=== PATIENT | female | born 1980 | race Caucasian/White ===

== ENCOUNTER 2023-10-19 08:38 | Emergency (ER) | payer BC, SELFPAY ==
[2023-10-19 08:39] VITALS: BP 179/101
--- NOTE | 2023-10-19 10:00 | ED.GENMED ---
History of Present Illness
General
Chief Complaint: Abdominal Pain
Source: patient
Exam Limitations: none
Time Seen by Provider: 10/19/23 08:43
Nursing documentation reviewed up to this point in time: agreed with
Travel History
Have you had any contact with someone who has COVID-19?: No
Do you have any symptoms of coronavirus? Fever > 100 degrees, chills, cough, shortness of breath, sore throat, loss of taste or smell, muscle aches, or headache?: No
History of Present Illness
History of Present Illness:
43-year-old female with a past medical history of hypertension who presents to the emergency department for evaluation of abdominal pain. Patient reports symptoms have been ongoing for the past 5 months since May�she says she has had
intermittent pains in the left upper abdomen that radiates to the back�no clear triggering factors although initially she thought it might be related to unhealthy food. She says that she will typically get symptoms a few times a week. She says
that she tried Pepto-Bismol heto-doz-bowthjw and tried a 2-week course of Prilosec but symptoms did not resolve and so she ultimately saw her primary doctor recently for this. She says she was told that her symptoms could be referred pain from her
gallbladder and scheduled for an upper abdominal ultrasound which is in October. Patient says she has been meticulous about avoiding fatty foods in her diet but she is still having symptoms and yesterday had a episode lasted longer than usual�she says
she had pain essentially from 4 PM until she went to bed. She says she also had some associated paresthesias on the left side of her back/flank as well as occasionally in her foot and arm. She says she has associated nausea but no vomiting. Last
night she had some chills but generally speaking has not had fever or chills associate with the symptoms. She denies any shortness of breath or chest pain, coughing. She denies any associated constipation; yesterday in fact had some loose stools
but generally speaking has not had loose stools associated with the symptoms. She denies any dysuria, hematuria, change in urinary frequency. She just recently started her menstrual period and has some typical vaginal spotting. She denies any
other complaints. She has a prior surgical history of two c-sections.
Review of Systems
Review of Systems
All Other Systems: ROS reviewed and negative except as documented in HPI and ROS
Constitutional: Reports chills; Denies fever
EENT: Denies sore throat or runny nose
Respiratory: Denies cough or trouble breathing
Cardiac: Denies chest pain or palpitations
ABD/GI: Reports abdominal pain, nausea and diarrhea; Denies vomiting or constipated
: Denies dysuria, frequency, flank pain or bleeding
Musculoskeletal: Denies neck pain or back pain
Neurological: Denies headache, weakness or numbness
Phy Exam
Physical Exam
Physical Exam:
General: Awake, alert, oriented x3; no acute distress
Head: Normocephalic, atraumatic
Eyes: Conjunctiva normal, sclera anicteric
Throat: Airway intact, handling secretions
Neck: Trachea midline, supple without meningismus
Lungs: Clear to auscultation bilaterally, no wheezing, rales, rhonchi
Heart: Regular rate and rhythm, no murmurs, gallops, or rubs
Abd: Soft, non distended, mildly tender in the left upper and left lower quadrant with no peritoneal signs and no abdominal masses
Back: No CVA tenderness
Neuro: Cranial nerves grossly intact, speech fluid
Skin: no rash
Extremities: No edema in extremities, equal pulses in all extremities
Scores
Heart Failure Risk
Heart Failure Risk Score: Not Applicable
Heart Score for Chest Pain Patients
STEMI patient?: Not applicable
Withdrawal Assessment of Alcohol
Withdrawal Assessment Completed?: Not applicable
Course
Orders/Labs/Results
Orders:
Orders
10/19/23 09:18
CT Abd/pelvis W Iv Cont Urgent
Comment:
Reason For Exam: left sided abd pain
Urinalysis Reflex To Culture Urgent
10/19/23 09:55
Electrocardiogram (*1) Urgent
Reason for Study: Abdominal Pain
EKG- Treatment ONCE
10/19/23 10:04
Complete Blood Count/With Diff Urgent
Comprehensive Metabolic Panel Urgent
Lipase Urgent
Magnesium Urgent
Troponin I Urgent
Abnormal Lab Results
10/19/23
10:04
Absolute Neuts (auto) 7.7 H 10^3/uL
(1.4-6.5)
Neutrophils % 76.4 H %
(42.2-75.2)
Lymphocytes % 16.7 L %
(20.5-51.1)
Glucose 121 H mg/dl
(70-99)
10/19/23 10:04
10/19/23 10:04
Vital Signs
Initial and Last Documented VS:
Initial Vital Signs
Temp Pulse Resp BP Pulse Ox
36.8 C 96 18 179/101 96
10/19/23 08:39 10/19/23 08:39 10/19/23 08:39 10/19/23 08:39 10/19/23 08:39
Last Documented Vital Signs
Temp Pulse Resp BP Pulse Ox
36.8 C 96 18 179/101 96
10/19/23 08:39 10/19/23 08:39 10/19/23 08:39 10/19/23 08:39 10/19/23 08:39
MDM/Problems Addressed
Differential Diagnosis Includes:
Gastritis, PUD, nephrolithiasis, pyelonephritis, constipation, diverticulitis, musculoskeletal, less likely ovarian cyst; lower suspicion for AAA in a female non-smoker less than 60
MDM/Problems Addressed:
43-year-old female presents for evaluation of left-sided abdominal pain that has been ongoing for the past 5 months yesterday lasting longer than usual and associated paresthesias as above. Hypertensive but otherwise normal vitals. Physical exam
as above. Plan to place an IV check labs including a CBC and a CMP, lipase. Check a troponin and EKG. Will check urinalysis. Check an hCG. Will send for CT of the abdomen pelvis. Will monitor closely reassess after the above.
Labs reviewed: CBC unremarkable, CMP no clinically significant abnormalities. Troponin undetectable. CT abdomen pelvis shows signs consistent with colitis, could be infectious versus inflammatory�she has no bloody diarrhea but has had intermittent
symptoms since May which suggest potentially inflammatory etiology. She does have an acute change in her bowels with loose stools over the past 24 hours as well as more consistent pain over the past 24 hours which could suggest that this is an
infectious process unrelated to her subacute to chronic pain since May. Plan to cover with antibiotics (Augmentin). Will refer to GI for outpatient follow-up. There is no clear indication for admission at this point in time, discharged with
outpatient follow-up plan. Patient comfortable with this. Spoke about return precautions and all questions answered.
Acute Exacerbation and/or Progression of Chronic Illness:
Acutely hypertensive
Acute Exacerbation and/or Progression of Chronic Illness: HTN
*Radiology
Radiology exam reviewed: radiology read reviewed
*Pulse Oximetry
Patient hypoxic: no
*Critical Care Note
Total Time (30-74mins, 75-104mins- exclusive of procedures): Not Applicable
Data Reviewed
Source: patient
ED Attending Note
-
Portions of this chart may have been created with voice recognition software.� Occasional wrong word or��sound alike� substitutions may have occurred due to the inherent limitations of voice recognition software.
Discharge Plan
Departure
Patient Disposition: Home (Routine Discharge)
Date of Disposition: 10/19/23
Time of Disposition: 12:32
Patient with high blood pressure during this ER visit?: Yes
Discharge Problem:
Colitis, Abdominal pain, Hypertension
Instructions: Colitis (DC), Abdominal Pain, BLOOD PRESSURE
Prescriptions:
New
amoxicillin-pot clavulanate 875-125 mg tablet
1 tab PO BID 7 Days Qty: 14 0RF
Referrals:
Becca Malik CRNP [Family Provider] - Follow up in 5-7 days
Korin Kelly MD [Active] - Call in 1-3 days for appt
Activity Restrictions/Additional Instructions:
Thank you for visiting the Emergency Department at [facility].
1. Please schedule a follow up appointment as directed. Call first thing tomorrow morning to make an appointment.
2. If indicated, please take your medications as instructed and indicated on discharge paperwork.
3. If any of your symptoms do not improve, or persist, or become more severe within 6-12 hours, please return to the emergency department for further care.
4. Please return to the emergency department if you develop a headache, neck pain/stiffness, fever greater than 100.4F, chest pain, shortness of breath, persistent nausea, vomiting, slurred speech, difficulty walking, numbness/tingling, weakness,
signs of infection or any other symptoms that are worrisome to you.
Please call [phone] if you have any questions.
Interventions
Interventions:
*Risk Screen - Suicide Last Done: 10/19/23 09:51
*General Assessment Last Done: 10/19/23 09:51
*Neglect/Abuse Screening Last Done: 10/19/23 09:51
*ED COVID-19 Vaccine History Last Done: 10/19/23 08:39
Discharge Date and Time
Print Language: DUTCH
[2023-10-19 10:11] LABS: % Basophils 0.3 % (0-2); % Eosinophils 1.2 % (0-6); % Immature Granulocytes 0.4 % (0-0.5); % Lymphocytes 16.7 % (20.5-51.1); % Neutrophils 76.4 % (42.2-75.2); Absolute Eosinophils 0.1 10^3/uL (0-0.7); Absolute Lymphocytes 1.7 10^3/uL (1.2-3.4); Absolute Monocytes 0.5 10^3/uL (0.1-0.6); Absolute Neutrophils 7.7 10^3/uL (1.4-6.5); Hematocrit 38.5 % (37.0-47.0); Hemoglobin 13.7 g/dL (12.0-16.0); Mean Corp Hgb Conc. 35.6 g/dL (33.0-37.0); Mean Corpuscular Hgb 29.3 pg (27.0-31.0); Mean Corpuscular Volume 82.3 fL (81.0-99.0); Mean Platelet Volume 10.2 fL (7.4-10.4); Nucleated Red Blood Cells % 0 %; Platelet Count 317 10^3/uL (130-400); Red Blood Cell Count 4.68 10^6/uL (4.20-5.40); Red Cell Dist. Width 12.4 % (11.5-14.5); White Blood Cell Count 10.1 10^3/uL (4.8-10.8)
[2023-10-19 10:35] LABS: Troponin I < 0.012 ng/ml
[2023-10-19 10:41] LABS: ALT (SGPT) 25 U/L (0-35); AST (SGOT) 22 U/L (14-36); Albumin 4.6 g/dl (3.5-5.0); Alkaline Phosphatase 62 U/L (38-126); Blood Urea Nitrogen 11 mg/dl (7-17); Calcium 9.7 mg/dl (8.4-10.2); Carbon Dioxide 24 mmol/L (22-30); Chloride 106 mmol/L (98-107); Glucose 121 mg/dl (70-99); Lipase 75 U/L (23-300); Magnesium 2.1 mg/dl (1.6-2.3); Potassium 3.7 mmol/L (3.5-5.1); Sodium 141 mmol/L (135-145); Total Bilirubin 0.5 mg/dl (0.2-1.3); Total Protein 7.7 g/dl (6.3-8.2); eGFR > 60.00
[2023-10-19] MEDS: AUGMENTIN 875 MG/125 MG 1 TABLET PO (13:04)
[2023-10-19 13:32] VITALS: BP 136/87
[2023-10-19 13:40] VITALS: BP 136/87
== END 2023-10-19 13:41 | disposition home or self-care (01) ==
LOC: EMR 08:38
PROVIDERS: EMERGENCY PHYSICIAN Emergency Medicine; FAMILY PHYSICIAN Nurse Practitioner Family
DX: K52.9 Noninfective gastroenteritis and colitis, unspecified (principal); R10.9 Unspecified abdominal pain; I10 Essential (primary) hypertension
CPT/HCPCS: 99284; 74177; 80053; 83690; 83735; 84484; 85025; 93005; Q9967

== ENCOUNTER 2023-12-06 07:14 | Emergency (ER) | payer BC, SELFPAY ==
[2023-12-06] VITALS (8 sets, daily range): BP systolic 114–170; BP diastolic 70–110; BMI 26.9
[2023-12-06 08:35] LABS: Urine Albumin Negative (Neg - Trace); Urine Bilirubin Negative (Negative); Urine Character Clear (Clear); Urine Color Straw; Urine Glucose Trace (Negative); Urine Ketone Negative (Negative); Urine Leukocyte Negative (Negative); Urine Nitrite Negative (Negative); Urine Occult Blood Negative (Negative); Urine Specific Gravity 1.005 (<1.030); Urine Urobilinogen Negative (Neg - 1+)
--- NOTE | 2023-12-06 08:35 | ED.GENMED ---
History of Present Illness
General
Chief Complaint: Abdominal Pain
Source: patient
Time Seen by Provider: 12/06/23 08:22
History of Present Illness
History of Present Illness:
This patient is a 43-year-old female who presents emergency department with complaints of discomfort that started after eating at a 'cookout' on Wednesday. The pain is located in the left upper quadrant sometimes in the corresponding left back area.
She describes the sensation is constant and feeling 'gassy' associate with intermittent nausea and loose stools. She also feels like her legs are painful which she is unsure if this is related or not. Her symptoms are partially relieved with
Gas-X and Motrin, most recent dose of Motrin at 2 AM. She describes having 9 loose stools over the last 24 hours, denies mucus or bright red blood. Stool does appear slightly darker than usual which she thinks may be related to the Pepto she has
been taking. She denies foreign travel, sick contacts, fever, chest pain, dyspnea. She denies chills except for the first night which is now fully resolved. She denies urinary symptoms, anorexia, or other complaints. Patient was seen for pain in
the emergency department relatively recently, diagnosed with colitis, and had GI follow-up. With GI follow-up she had a celiac test which was negative, but her breath test was positive for H. pylori and she was started on the appropriate
medications which she continues to take at this time.
Past History
Past History
ED Past Medical History: HTN
ED Past Surgical History:
Social History
Tobacco: Non-smoker
Alcohol: Occasional
Drug: None
Personal:
Living: with family
Phy Exam
Physical Exam
Physical Exam:
GENERAL: Alert , in no apparent distress
EYE: pupils equal and reactive
NECK: Supple, no significant adenopathy.
ENT: o/p clr, mmm.
CARDIAC: Regular rate and rhythm .
LUNGS: Clear breath sounds bilaterally, no acute respiratory distress, no wheezes/rales/rhonchi
ABDOMEN: Soft, without focal tenderness, no r/g, no cvat
NEUROLOGICAL: Alert and oriented, no focal neuro deficits
SKIN: Warm and dry, skin intact.
MUSCULOSKELETAL: No edema, well perfused.
PSYCH: Normal and appropriate interaction.
Course
Orders/Labs/Results
Orders:
Orders
12/06/23 07:23
Cardiac Monitoring- Treatment ONCE
12/06/23 07:24
Electrocardiogram (*1) Urgent
Reason for Study: Abdominal Pain
EKG- Treatment ONCE
IV Insert/Care/Rem.- Treatment PRN
Test Result ONCE
12/06/23 08:20
HCG, Urine Qualitative Screen Urgent
Date Specimen was Collected: 12/06/23
Time Specimen was Collected: 07:24
Urinalysis Reflex To Culture Urgent
Date Specimen was Collected: 12/06/23
Time Specimen was Collected: 07:24
12/06/23 08:35
US Abdomen Complete/Upper Urgent
Comment:
Reason For Exam: luq pain, n
12/06/23 08:39
Add On- LAB Urgent
Tests Added?: cpk
12/06/23 08:47
Ondansetron Injectable [Zofran] 4 mg IV NOW STA
CR Chest - 2 Views Urgent
Comment:
Reason For Exam: l lower pain
12/06/23 09:07
Complete Blood Count/With Diff Urgent
Comprehensive Metabolic Panel Urgent
Creatine Phosphokinase Urgent
Comment: ADD ON
Lipase Urgent
12/06/23 09:15
Dicyclomine [Bentyl] 20 mg PO NOW STA
12/06/23 09:19
0.9% Sodium Chloride 1000 ml [Nss] 1,000 ml IV BOLUS
12/06/23 09:26
C difficile Antigen & Toxins Urgent
WINIFRED Source: Feces/Stool
Specimen Description:
Date Specimen was Collected: 12/06/23
Time Specimen was Collected: :
Stool Culture Urgent
WINIFRED Source: Feces/Stool
Specimen Description:
Date Specimen was Collected: 12/06/23
Time Specimen was Collected:
12/06/23 12:06
Ketorolac [Toradol] 10 mg IV NOW STA
12/06/23 12:22
Vancomycin HCl [Firvanq] 125 mg PO NOW STA
Abnormal Lab Results
12/06/23 12/06/23
08:20 09:07
Hct 35.8 L %
(37.0-47.0)
Absolute Lymphs (auto) 0.4 L 10^3/uL
(1.2-3.4)
Neutrophils % 83.0 H %
(42.2-75.2)
Lymphocytes % 6.9 L %
(20.5-51.1)
Glucose 120 H mg/dl
(70-99)
Urine Glucose Trace A
(Negative)
12/06/23 09:07
12/06/23 09:07
Vital Signs
Initial and Last Documented VS:
Initial Vital Signs
Temp Pulse Resp BP Pulse Ox
98.0 F 110 16 170/110 98
12/06/23 07:16 12/06/23 07:16 12/06/23 07:16 12/06/23 07:16 12/06/23 07:16
Last Documented Vital Signs
Temp Pulse Resp BP Pulse Ox
98.3 F 90 16 130/83 98
12/06/23 12:55 12/06/23 12:55 12/06/23 12:55 12/06/23 12:55 12/06/23 12:55
*Critical Care Note
Total Time (30-74mins, 75-104mins- exclusive of procedures): Not Applicable
Update Note
Update Note:
Patient presents to the Emergency Department with __left-sided abdominal pain
Number and Complexity of Problems Addressed at the Encounter
� Chronic conditions affecting care:
� Acute Exacerbation and/or Progression of Chronic Illness:
� Differential Diagnosis includes: But not limited to pancreatitis, colitis, cholelithiasis, nephrolithiasis, etc.
Amount and/or Complexity of Data to be Reviewed and Analyzed
� I performed an independent evaluation of and my interpretation is:
EKG: Read by me, normal sinus rhythm, normal rate, normal axis, no acute ischemia
CT:
Xrays:cxr read by me nad
Laboratory Studies:generally unremkarable
Other:us Unremarkable sonographic appearance of the spleen.
No evidence of cholelithiasis, gallbladder wall thickening or biliary tract dilatation.
Cannot exclude small nonobstructing right renal calculus. Mild bilateral renal collecting system dilatation. Small simple right renal cyst.
� Review of other/old records reveals:
� Clinical information was obtained by an independent historian:
� Prescriptions/Medications Considered but not given:
� Further testing considered but not performed:
Risk of Complications and/or Morbidity or Mortality of Patient Management
� Social determinants of health affecting care:
� Discussion with other providers (PCP, Hospitalists, Consultants, etc):
� Escalation of care including admission/observation vs risk of discharge considered:LABS NOTED, AT THIS TIME C DIF ANT + BUT TOXIN NEGATIVE. ALL OTHER STOOL STUDIES PENDING. PT FEELS MUCH BETTER, ABD SOFT, PT WANTS TO EAT
LUNCH. STILL WITH MILD BACK PAIN. AWARE OF ALL FINDINGS HERE INCLUDING STOOL, ?STONE ON US, ETC. CASE D/W GI, DR CARSON, AWARE OF LABS, HX, ETC...RECOMMEND VANCO 125 MG QID FOR 7 DAYS. THIS MAY BE REAL FINDING GIVEN RECENT ABX FOR HPYLORI.
D/W PT IMPROT OF F/U AND REASONS TO RTED.
ED Attending Note
-
Portions of this chart may have been created with voice recognition software.� Occasional wrong word or��sound alike� substitutions may have occurred due to the inherent limitations of voice recognition software.
Discharge Plan
Departure
Patient Disposition: Home (Routine Discharge)
Date of Disposition: 12/06/23
Time of Disposition: 12:13
Patient with high blood pressure during this ER visit?: Yes
Condition: Good
Discharge Problem:
Diarrhea
Instructions: Diarrhea in teens and adults, Abdominal Pain, BLOOD PRESSURE
Prescriptions:
New
vancomycin 125 mg capsule
125 mg PO QID Qty: 28 0RF
ondansetron HCl 4 mg tablet
4 mg PO Q8H PRN (Reason: nausea and vomiting) Qty: 7 0RF
No Action
amoxicillin-pot clavulanate 875-125 mg tablet
1 tab PO BID 7 Days Qty: 14 0RF
Referrals:
Becca Malik CRNP [Family Provider] - Follow up in 2-3 days
Activity Restrictions/Additional Instructions:
PLEASE SEE YOUR GI DOCTOR IN CLOSE FOLLOW UP PROMPTLY. IF YOU DEVELOP FEVER, CHILLS, VOMITING, INCREASING/NEW/PERSISTENT PAIN, GET WORSE, DO NOT GET BETTER, OR OTHER WORRISOME SIGNS, GO TO THE ER IMMEDIATELY!
Interventions
Interventions:
*Risk Screen - Suicide Last Done: 12/06/23 08:00
*General Assessment Last Done: 12/06/23 08:00
*Neglect/Abuse Screening Last Done: 12/06/23 08:00
ED- Fall Risk Assessment Last Done: 12/06/23 08:00
*ED COVID-19 Vaccine History Last Done: 12/06/23 07:16
*Nursing Disposition Last Done: 12/06/23 12:55
RC-Yzvfzf-Vmxrvwxbej Assessment Last Done: 12/06/23 08:00
Discharge Date and Time
Discharge Date/Time: 12/06/23 12:55
Print Language: HEBREW
[2023-12-06 08:40] LABS: HCG, Urine Qualitative Screen Negative
[2023-12-06 09:15] LABS: % Basophils 0.4 % (0-2); % Immature Granulocytes 0.4 % (0-0.5); % Lymphocytes 6.9 % (20.5-51.1); % Monocytes 8.3 % (1.7-9.3); Absolute Eosinophils 0.1 10^3/uL (0-0.7); Absolute Lymphocytes 0.4 10^3/uL (1.2-3.4); Absolute Monocytes 0.4 10^3/uL (0.1-0.6); Absolute Neutrophils 4.3 10^3/uL (1.4-6.5); Hematocrit 35.8 % (37.0-47.0); Hemoglobin 12.6 g/dL (12.0-16.0); Mean Corp Hgb Conc. 35.2 g/dL (33.0-37.0); Mean Corpuscular Volume 82.5 fL (81.0-99.0); Mean Platelet Volume 10.3 fL (7.4-10.4); Nucleated Red Blood Cells % 0 %; Platelet Count 224 10^3/uL (130-400); Red Blood Cell Count 4.34 10^6/uL (4.20-5.40); Red Cell Dist. Width 12.7 % (11.5-14.5); White Blood Cell Count 5.2 10^3/uL (4.8-10.8)
[2023-12-06] MEDS: ZOFRAN 4 MG IV (09:18)
[2023-12-06] MEDS: NSS 1000 IV (09:19)
[2023-12-06] MEDS: BENTYL 20 MG PO (09:22)
[2023-12-06 09:29] LABS: ALT (SGPT) 25 U/L (0-35); AST (SGOT) 23 U/L (14-36); Albumin 4.3 g/dl (3.5-5.0); Alkaline Phosphatase 51 U/L (38-126); Blood Urea Nitrogen 11 mg/dl (7-17); Calcium 8.9 mg/dl (8.4-10.2); Carbon Dioxide 22 mmol/L (22-30); Chloride 106 mmol/L (98-107); Estimated Creatinine Clearance 107 ml/min; Glucose 120 mg/dl (70-99); Lipase 77 U/L (23-300); Potassium 3.8 mmol/L (3.5-5.1); Sodium 137 mmol/L (135-145); Total Bilirubin 0.3 mg/dl (0.2-1.3); eGFR > 60.00
[2023-12-06 10:03] LABS: Creatine Phosphokinase 50 U/L (30-135)
[2023-12-06] MEDS: TORADOL 10 MG IV (12:21)
[2023-12-06] MEDS: FIRVANQ 125 MG PO (12:41)
--- NOTE | 2023-12-06 12:50 | EDRN ---
Reviewed discharge instructions with patient. Verbalized understanding. Ambulated with steady gait to the lobby.
== END 2023-12-06 12:55 | disposition home or self-care (01) ==
LOC: EMR 07:14
PROVIDERS: Emergency Medicine; EMERGENCY PHYSICIAN Emergency Medicine; FAMILY PHYSICIAN Nurse Practitioner Family
DX: R19.7 Diarrhea, unspecified (principal); I10 Essential (primary) hypertension
CPT/HCPCS: 99285; 96374; 96375; 96361; 71046; 76700; 80053; 81003; 81025; 82550; 83690; 85025; 87045; 87046; 87324; 87427; 87449; 93005

== ENCOUNTER → 2024-04-14 08:47 | Outpatient (REF) | payer BC, SELFPAY | LOC: WDC 08:47 | PROVIDERS: ATTENDING PHYSICIAN Nurse Practitioner Family | DX: Z12.31 Encounter for screening mammogram for malignant neoplasm of breast (principal) | CPT/HCPCS: 77063; 77067 ==

== ENCOUNTER → 2025-04-17 12:45 | Outpatient (REF) | payer BC, SELFPAY | LOC: WDC 12:45 | PROVIDERS: ATTENDING PHYSICIAN Internal Medicine | DX: Z12.31 Encounter for screening mammogram for malignant neoplasm of breast (principal) | CPT/HCPCS: 77063; 77067 ==